=== PATIENT | female | born 1990 | race Caucasian/White ===

== ENCOUNTER 2020-12-23 19:05 | Inpatient (IN) ==
[2020-12-23] MEDS ORDERED: CITRIC ACID/SODIUM CITRATE 15 ML UDC PO STA (19:27)
[2020-12-23] MEDS ORDERED: cefOXitin 2,000 MG in DEXTROSE 5% 50 ML IV SCH (19:30)
[2020-12-23] MEDS ORDERED: LACTATED RINGER'S 1,000 ML IV SCH (19:30)
--- NOTE | 2020-12-23 20:13 | Anesthesiology Consultation ---
Date of Service December 23, 2020 Assessment & Plan (1) Encounter for pre-operative examination: Chart Review Chart Review: Acceptable Risk for Surgery Consults Requested none ASA [id number] Proposed Anesthesia Anesthesia Type: Spinal Risk / Benefits Reviewed With: PT / POA / Parent / Guardian, Accepts Plan and Informed Consent Obtained History Surgery Operation Date: 12/23/20 19:10 Proposed Procedures p Section in - Esau Leonard MD Height/Weight Height: 5 ft 6 in Weight: 76.204 kg Allergies Allergy/AdvReac Type Severity Reaction Status Date / Time No Known Allergies Allergy Verified 12/23/20 19:25 Medications Home Medications Medication Instructions Recorded Confirmed Last Taken [id number] 1 tab PO PM 05/28/20 12/23/20 12/22/20 21:00 [] acetaminophen [Tylenol] 325 mg PO DIRECTED PRN 12/23/20 12/23/20 12/22/20 08:00 Active Medications Generic Name Dose Route Start Last Admin Trade Name Freq PRN Reason Stop Dose Admin Lactated Ringer's 1,000 mls @ 999 mls/hr 12/23/20 19:30 12/23/20 19:39 Lr IV 12/23/20 20:30 999 mls/hr .Q1H1M LI Administration NPO Date Last Intake of Fluids: 12/23/20 Time Last Intake of Fluids: 13:00 Date Last Intake of Solids: 12/23/20 Time Last Intake of Solids: 13:00 Past Medical History Medical History No known health problems Exercise / Class Metabolic Activity II 4-5 Yardwork/Stairs/Walk up hill Past Surgical History Surgical History History of adenoidectomy History of tooth extraction Imperforate anus As > with repair Past Anesthesia History No Hx of Anesthesia Complications and No Family Hx of Anesthesia Complications History of PONV No Hx of PONV and No Hx of Motion Sickness Social History Smoking Status: Never smoker Hx Alcohol Use: No Hx Substance Use: No substance use type: does not use Physical Exam Vital Signs Last Vital Signs Temp 99.0 F 12/23/20 19:28 Pulse 83 12/23/20 19:28 Resp 18 12/23/20 19:28 BP 124/58 L 12/23/20 19:28 ENMT Mouth: no dentition abnormality Thyromental Distance: > or= 3.5 Finger Breadths Mallampati Class: II Neck normal visual inspection Respiratory normal respiratory effort Auscultation: lungs clear to auscultation bilaterally Cardiovascular Rate/Rhythm: regular rate and regular rhythm
[2020-12-23 20:22] LABS: Basophils # (auto) 0.03 K/uL (0-0.2); Basophils % (auto) 0.2 %; Eosinophils # (auto) 0.12 K/uL (0-0.5); Eosinophils % (auto) 0.9 %; Hemoglobin 11.3 g/dL (12.0-16.0); Immature Granulocytes # (auto) 0.14 K/uL (0.00-0.02); Lymphocytes # (auto) 2.31 K/uL (1.2-3.4); Mean Corpuscular Volume 93.5 fL (80-100); Mean Platelet Volume 10.5 fL (7.4-10.4); Monocytes # (auto) 1.22 K/uL (0.11-0.59); Neutrophils # (auto) 9.76 K/uL (1.4-6.5); Neutrophils % (auto) 71.9 %; Platelet Count 272 K/uL (130-400); RDW Coefficient of Variation 12.8 % (11.5-14.5); RDW Standard Deviation 43.4 fL (36.4-46.3); Red Blood Count 3.53 M/uL (4.2-5.4); White Blood Count 13.58 K/uL (4.8-10.8)
[2020-12-23] MEDS ORDERED: MoRPHine SULFATE PF 1 MG/ML 10 ML AMP/VIAL ONE (20:22)
[2020-12-23] MEDS ORDERED: fentaNYL citrate 100 MCG/2 ML VIAL ONE (20:22)
[2020-12-23 20:57] LABS: Mean Corpuscular Hgb Conc 34.2 g/dL (32-36)
[2020-12-23] MEDS ORDERED: diphenhydrAMINE 50 MG/ML VIAL IV PRN (21:12)
[2020-12-23] MEDS ORDERED: LACTATED RINGER'S 500 ML IV PRN (21:12)
[2020-12-23] MEDS ORDERED: MEPERIDINE HCL 25 MG/ML CARP/VIAL IV PRN (21:12)
[2020-12-23] MEDS ORDERED: ePHEDrine sulfate 50 MG/ML AMP IV PRN (21:12)
[2020-12-23] MEDS ORDERED: NALOXONE HCL 1 MG in SODIUM CHLORIDE 0.9% 1000ML 1,000 ML IV PRN (21:12)
[2020-12-23] MEDS ORDERED: NALOXONE HCL 0.4 MG/1 ML VIAL/CARP IV PRN (21:12)
[2020-12-23] MEDS ORDERED: ONDANSETRON INJ 2 MG/ML 2 ML VIAL IV PRN (21:12)
[2020-12-23] MEDS ORDERED: MoRPHine SULFATE PF 1 MG/ML 10 ML AMP/VIAL INT SPINAL ONE (21:12)
[2020-12-23] MEDS ORDERED: NALOXONE HCL 0.08 MG in SYRINGE 1.8 ML IV PRN (21:12)
[2020-12-23] MEDS ORDERED: SODIUM CHLORIDE 0.9% 1000ML 1,000 ML IV SCH (21:15)
[2020-12-23] MEDS ORDERED: DC INTRASPINAL MORPHINE SCH (21:15)
[2020-12-23] MEDS ORDERED: NO NARCOTICS OR SEDATIVES SCH (21:15)
[2020-12-23] MEDS ORDERED: OXYTOCIN 10 UNITS/ML VIAL ONE (21:51)
[2020-12-23] MEDS ORDERED: MAGNESIUM HYDROXIDE SUSP 30 ML UDC PO PRN (22:16)
[2020-12-23] MEDS ORDERED: SENNA 8.6 MG TAB PO PRN (22:16)
[2020-12-23] MEDS ORDERED: DIPHTHERIA/TETANUS/PERTUSSIS 0.5 ML SYR/VIAL IM ONE (22:16)
[2020-12-23] MEDS ORDERED: BENZOCAINE 20% AER SPR 82.5 GM CAN EXT PRN (22:16)
[2020-12-23] MEDS ORDERED: HYDROCORTISONE ACETATE 25 MG SUPP PR PRN (22:16)
[2020-12-23] MEDS ORDERED: SUPERCREAM 0.870% 15 GM JAR EXT PRN (22:16)
--- NOTE | 2020-12-23 22:16 | Post Operative Brief Note ---
Immediate Post Op Note v1 Date of Surgery December 23, 2020 Pre & Post Diagnosis Operation Date: 12/23/20 19:10 Pre-Op Diagnosis: Double Footling Breech; Low Lying Umbillical Cord Post-Op Diagnosis: Double Footling Breech; Low Lying Umbillical Cord I identified the patient and participated in the time-out.: Yes Procedure Operation Date: 12/23/20 19:10 Actual Procedures p Section in OR(Bilateral) - Esau Leonard MD Surgeon Esau Leonard MD Driller Portable Dr Hill Estimated Blood Loss 600 Findings Consistent with Post-Op Diagnosis nuchal cord x one breech Specimens plcenta Drains Sanchez Catheter (Inserted for clear yellow urine) Anesthesia Type Spinal Complications none Disposition Accompanied Patient To Recovery: No Disposition: Recovery Room
[2020-12-23] MEDS: KETOROLAC 30 MG/ML VIAL IV PRN (22:43)
--- NOTE | 2020-12-23 23:46 | Anesthesiology Progress Note ---
Date of Service December 23, 2020 Anesthesia Post Procedure Vital Signs Vital Signs: Temp Pulse Resp BP Pulse Ox 12/23/20 23:43 78 100 12/23/20 23:38 67 100 12/23/20 23:33 71 99 12/23/20 23:28 79 99 12/23/20 23:23 81 96 12/23/20 23:20 16 12/23/20 23:18 71 118/78 98 12/23/20 23:13 73 98 12/23/20 23:10 18 12/23/20 23:08 77 128/70 96 12/23/20 23:03 70 96 12/23/20 23:00 18 12/23/20 22:58 74 122/66 96 12/23/20 22:53 80 95 12/23/20 22:50 72 18 94 12/23/20 22:48 73 119/74 96 12/23/20 22:43 74 97 12/23/20 22:40 16 12/23/20 22:38 73 116/69 97 12/23/20 22:35 76 88 L 12/23/20 22:32 74 99 12/23/20 22:30 16 12/23/20 22:28 58 L 119/73 12/23/20 22:27 70 100 12/23/20 22:22 71 100 12/23/20 22:21 73 89 L 12/23/20 22:20 98.6 F 16 12/23/20 22:18 69 115/69 12/23/20 22:17 72 100 12/23/20 19:28 99.0 F 83 18 124/58 L 12/23/20 19:16 83 124/58 L Pain Intensity Bilateral Abdomen: Pain Intensity: 1 Transfer of Care Handoff Completed per policy Notes Mental Status: alert / awake / arousable and participated in evaluation Nausea / Vomiting: adequately controlled Pain: adequately controlled Airway Patency, RR, SpO2: stable & adequate BP & HR: stable & adequate Hydration State: stable & adequate Neuraxial Anesthesia: was administered and sensory block is resolving Anesthetic Complications: no major complications apparent and Pt Satisfied with anesthetic care
[2020-12-24] MEDS: OXYTOCIN 20 UNITS in LACTATED RINGER'S 1,000 ML IV SCH ×2 (00:33→10:08)
--- NOTE | 2020-12-24 03:49 | Operative Report (OR) ---
DATE OF OPERATION: 12/23/2020 PROCEDURE: Primary low segment section. INDICATIONS FOR SURGERY: Compound breech presentation with a low lying cord. PREOPERATIVE DIAGNOSIS: Intrauterine at 38 weeks 1 day, double footling breech presentation, low-lying umbilical cord. POSTOPERATIVE DIAGNOSIS: Intrauterine at 38 weeks 1 day, double footling breech presentation, low-lying umbilical cord. SURGEON: Sujatha Leonard MD HEAT TREATER HEAD: Remi Hill MD ESTIMATED BLOOD LOSS: 600 mL. ANESTHESIA: Spinal. OPERATIVE FINDINGS AND PROCEDURE: The patient was brought to the OR table, correctly identified by armband and conversation. Spinal anesthesia was administered. Lower abdomen and umbilical area was scrubbed with alcohol based sterilizing solution after compression stockings were applied and a Sanchez catheter was inserted in the bladder, connected to gravity drainage. The patient was draped in usual sterile fashion. Palpation revealed the presenting part to be high. A Pfannenstiel incision was made and carried down to the anterior fascia by sharp dissection. Hemostasis was secured by electrocauterization. Fascia was incised transversely, from the underlying muscle by blunt and sharp dissection. Recti muscles were in the midline, exposing the peritoneum, which was carefully raised and entered. A retractor was used to expose the lower uterine segment and carefully palpated where everything was, presenting part was high. We made a high horizontal incision on the uterus, well above the bladder, scored it with a knife, then entered it bluntly with the scissors and then clear amnionic fluid could be seen coming through the incision. I inserted my hand into the uterine cavity and grasped the pelvis and then slowly extracted the infant by grasping the pelvis and reducing each leg and then the arms and head spontaneously reduced and came out of the incision. There was a tight nuchal cord around the neck and there was a low lying placenta cord noted at the time of surgery. Placental cord was stripped, clamped and cut and was attended by the satellite instruction facilitator who was present and scrubbed at the time of delivery. Cord blood was taken. Placenta was removed manually. Uterine cavity was cleansed with a clean sponge. The myometrial defect was grasped with ring forceps. Then I did a 3-layer closure. The muscular layer was approximated with continuous heavy duty chromic, then the fascial layer was approximated over this with a continuous heavy duty 2-0 Vicryl. There was some bleeding on each of the ends of the incision on the left side. I had to do 2 wide bi-horizontal sutures above the defect and below the defect to tie off the vessels and secure good hemostasis. On the right side, I had to do 1 horizontal suture above the defect. After the fascial layer had been approximated and about 2 [id number] sutures of Vicryl were placed along the right side to complete the hemostatic process, a third layer was approximated with 3-0 chromic, which approximated the peritoneal edges of the bladder. Following this, careful inspection revealed no hematoma formation. Hemostasis was excellent. The pelvis was cleansed of all blood clots and debris. Uterus, tubes, and ovaries were reinserted into the abdomen. The peritoneum was closed with continuous mattress suture of chromic catgut. Recti muscles were approximated with interrupted [id number] suture of chromic catgut. The fascia was closed with continuous interlocking suture of Vicryl on each side, tied in the midline. Subcutaneous layer was approximated with continuous plain and skin edges were approximated with staple clips. The patient tolerated the procedures well and left the OR in good condition. I attest to the content of the Intraoperative Record and any orders documented therein. Any exception s are noted below.
[2020-12-24] MEDS: KETOROLAC 30 MG/ML VIAL IV PRN ×2 (04:38→12:23)
[2020-12-24 06:30] LABS: Basophils # (auto) 0.01 K/uL (0-0.2); Basophils % (auto) 0.1 %; Eosinophils # (auto) 0.18 K/uL (0-0.5); Eosinophils % (auto) 1.3 %; Hematocrit (blood only) 27.7 % (37-47); Hemoglobin 9.7 g/dL (12.0-16.0); Immature Granulocytes # (auto) 0.09 K/uL (0.00-0.02); Immature Granulocytes % (auto) 0.6 %; Lymphocytes # (auto) 1.66 K/uL (1.2-3.4); Lymphocytes % (auto) 11.8 %; Mean Corpuscular Hemoglobin 32.7 pg (25-34); Mean Corpuscular Volume 93.3 fL (80-100); Mean Platelet Volume 10.3 fL (7.4-10.4); Monocytes # (auto) 1.15 K/uL (0.11-0.59); Monocytes % (auto) 8.2 %; Neutrophils # (auto) 10.97 K/uL (1.4-6.5); Platelet Count 221 K/uL (130-400); RDW Coefficient of Variation 12.7 % (11.5-14.5); RDW Standard Deviation 43.1 fL (36.4-46.3); Red Blood Count 2.97 M/uL (4.2-5.4); White Blood Count 14.06 K/uL (4.8-10.8)
[2020-12-24] MEDS: DOCUSATE SODIUM 100 MG CAP PO SCH ×2 (07:57→21:11)
[2020-12-24] MEDS: PRENATAL VITAMIN 1 TAB PO SCH (07:57)
[2020-12-24] MEDS: FERROUS SULFATE 325 MG TAB PO SCH (07:57)
[2020-12-24] MEDS: SIMETHICONE 80 MG CHEW PO SCH ×4 (07:57→21:11)
[2020-12-24] MEDS: LACTATED RINGER'S 1,000 ML IV SCH (13:40)
[2020-12-24] MEDS ORDERED: Nursing to Pharmacy Communication SCH (13:45)
[2020-12-24] MEDS ORDERED: diphenhydrAMINE 50 MG/ML VIAL IV PRN (15:11)
[2020-12-24] MEDS ORDERED: MEPERIDINE HCL 50 MG/ML CARP IV PRN (15:11)
[2020-12-24] MEDS ORDERED: ONDANSETRON INJ 2 MG/ML 2 ML VIAL IV PRN (15:11)
[2020-12-24] MEDS ORDERED: PROMETHAZINE HCL 25 MG in SODIUM CHLORIDE 0.9% 50 ML IV PRN (15:11)
[2020-12-24] MEDS ORDERED: ZOLPIDEM TARTRATE 5 MG TAB PO PRN (15:11)
[2020-12-24] MEDS ORDERED: KETOROLAC 30 MG/ML VIAL IV PRN (15:12)
[2020-12-24] MEDS ORDERED: diphenhydrAMINE Capsule 25 MG CAP PO PRN (15:12)
[2020-12-24] MEDS: oxyCODONE/ACETAMINOPHEN 5mg/325mg TAB PO PRN ×2 (16:56→21:11)
[2020-12-24] MEDS: IBUPROFEN 600 MG TAB PO PRN ×2 (16:57→21:12)
[2020-12-24] MEDS ORDERED: bisacodyL 5 MG TABEC PO SCH (20:00)
[2020-12-25] MEDS: oxyCODONE/ACETAMINOPHEN 5mg/325mg TAB PO PRN ×5 (02:04→20:44)
[2020-12-25] MEDS: IBUPROFEN 600 MG TAB PO PRN ×5 (02:04→17:08)
[2020-12-25 06:22] LABS: Hematocrit (blood only) 27.7 % (37-47); Hemoglobin 9.6 g/dL (12.0-16.0)
[2020-12-25] MEDS: FERROUS SULFATE 325 MG TAB PO SCH (08:16)
[2020-12-25] MEDS: PRENATAL VITAMIN 1 TAB PO SCH (08:16)
[2020-12-25] MEDS: DOCUSATE SODIUM 100 MG CAP PO SCH ×2 (08:16→20:44)
[2020-12-25] MEDS: SIMETHICONE 80 MG CHEW PO SCH ×4 (08:16→20:44)
--- NOTE | 2020-12-25 17:14 | Obstetrical Progress Note ---
Date of Service December 25, 2020 Assessment & Plan (1) delivery delivered: Day #2 pt doing well anticipate dsich tomorrow Subjective Ambulation: ambulating normally Voiding: no voiding problems Passing Gas:: Yes Diet Tolerance:: clear liquids Lochia:: Small Feeding Type:: breast feeding Review of Systems All systems reviewed & are unremarkable except as noted in HPI & below Physical Exam Constitutional WD/WN, vitals as above well developed and well nourished Eyes PERRL, conjunctivae normal, anicteric sclerae ENMT external ear and nose normal, oropharynx normal Neck trachea midline, no thyromegaly Respiratory normal respiratory effort, lungs clear to auscultation Cardiovascular RRR, no murmur, no edema Chest (Breasts) normal inspection/palpation of breasts Gastrointestinal (Abdomen) normal bowel sounds, soft, nontender, no hepatosplenomegaly Musculoskeletal no cyanosis or clubbing, extremities motor strength 5/5 Skin no rashes, warm and dry + incision (Clean,dry and intact) Neurologic patellar DTR's 2+ bilat, sensation intact Psychiatric A+Ox3, euthymic affect Genitourinary normal external appearance Lymphatic no cervical or axillary lymphadenopathy Results & Data ([facility]) Vital Signs (Past 12 Hours) Vital Signs Temp Pulse Resp BP 12/25/20 15:17 36.9 C 64 16 99/70 L 12/25/20 07:50 36.8 C 80 16 99/60 L
[2020-12-25] MEDS ORDERED: bisacodyL 10 MG SUPP PR PRN (22:16)
[2020-12-26] MEDS: IBUPROFEN 600 MG TAB PO PRN ×3 (00:22→11:18)
[2020-12-26] MEDS: oxyCODONE/ACETAMINOPHEN 5mg/325mg TAB PO PRN ×3 (00:23→11:17)
[2020-12-26] MEDS: DOCUSATE SODIUM 100 MG CAP PO SCH (08:38)
[2020-12-26] MEDS: SIMETHICONE 80 MG CHEW PO SCH (08:38)
[2020-12-26] MEDS: PRENATAL VITAMIN 1 TAB PO SCH (08:38)
[2020-12-26] MEDS: FERROUS SULFATE 325 MG TAB PO SCH (08:38)
[2020-12-26 10:04] VITALS: BP 121/70; PULSE 91; TEMP 98.8; O2SAT 98
--- NOTE | 2020-12-26 10:57 | Surgery Progress Note ---
Date of Service December 26, 2020 Assessment & Plan Admission and Anticipated Discharge Date Admission Date: December 23, 2020 Subjective PPD#3 doing well passing gas tolerating diet out of bed plans for discharge Physical Exam Constitutional: WD/WN, vitals as above well developed and comfortable abdomen soft and non-tender fundus firm below U incision c/d/i no edema neg Anthony's plans for d/c today f/u in 1 week for incision check Results & Data ([facility]) Vital Signs (Past 12 Hours) Vital Signs Temp Pulse Resp BP Pulse Ox 12/26/20 08:10 37.1 C 91 H 18 121/70 98 12/25/20 23:50 36.6 C 88 20 112/70 99 Laboratory Results Laboratory Results - last 48 hr 12/24/20 12/25/20 05:51 06:04 Hgb 9.6 L Hct 27.7 L Antibody Screen Cancelled
--- NOTE | 2020-12-31 23:49 | Discharge Summary (DS) ---
The patient was admitted for a at 38 weeks 1 day. She had a double footling breech. She had a heart-shaped uterus. Anterior placenta. She was diagnosed as breech 2 or 3 months prior to the admission date, never switched, eversion was considered, but was decided against due to abnormal-shaped uterus and anterior placenta. Ultrasound done on the day of admission confirmed the double footling breech and a suspicion for cord in the lower uterine segment. Also at the time of admission, cervix was 100% effaced, 2-3 cm dilated and you could feel the heels of the baby through the membranes. We felt that she had a high risk of a cord prolapse with the onset of labor, so she was brought in for at 38 weeks 1 day. On day of admission, she was taken to the OR, given prophylactic antibiotics, underwent primary low segment section without difficulty. Estimated blood loss was 600 mL, preoperative hemoglobin was 13.1, postoperative hemoglobin was 9.6. Postoperatively, she did well. She remained afebrile throughout her whole postoperative course. Bowel sounds returned within 24 hours. At the time of discharge, she was ambulating well, eating well. Pain was controlled with a combination of Percocet and Motrin. She was told to call the office for elevated temperature and to return to the office in 1 week for removal of bessie.
== END 2020-12-26 12:04 | disposition home or self-care (01) | DRG 788 ==
LOC: OPB 19:05 → 4S1 19:06 → 4S2 12-24 00:54